=== PATIENT | female | born 1980 | race Caucasian/White ===

== ENCOUNTER 2017-11-30 20:38 | Emergency (ER) | payer OTHER ==
[2017-11-30 20:44] VITALS: O2SAT 100
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
[2017-11-30 22:43] VITALS: BP 118/71; PULSE 67; RESP 16; TEMP 98.1
--- NOTE | 2017-12-01 09:22 | RAD ---
Date of service: 11/30/2017 PROCEDURE: Left Knee Radiographs. HISTORY: Pain. COMPARISON: None. FINDINGS: BONES: Normal. No fracture. JOINTS: Normal. No osteoarthritis. JOINT EFFUSION: None. OTHER FINDINGS: None. IMPRESSION: Normal radiographs of the left knee.
--- NOTE | 2017-12-01 09:25 | RAD ---
Date of service: 11/30/2017 PROCEDURE: Radiographs of the Right Shoulder HISTORY: shoulder injury COMPARISON: No prior. FINDINGS: BONES: No acute fracture or destructive bony lesion identified. JOINTS: Glenohumeral joint is unremarkable. Questionable laxity at the acromioclavicular joint. Neutral views demonstrate no definite pattern of separation. Clinically correlate for potential AC joint disruption given 3rd view of the shoulder simulating the Y-view. SOFT TISSUES: Normal. OTHER FINDINGS: None. IMPRESSION: No acute fracture or dislocation. No definitive AC joint disruption although a single view is somewhat suspicious and consider follow-up weight-bearing right shoulder radiographs to evaluate integrity of the acromioclavicular joint.
--- NOTE | 2017-12-01 10:24 | CT ---
Date of service: 11/30/2017 PROCEDURE: CT HEAD WITHOUT CONTRAST. HISTORY: head injury COMPARISON: None available. TECHNIQUE: Axial computed tomography images were obtained through the head/brain without intravenous contrast. Radiation dose: Total exam DLP = 704.87 mGy-cm. This CT exam was performed using one or more of the following dose reduction techniques: Automated exposure control, adjustment of the mA and/or kV according to patient size, and/or use of iterative reconstruction technique. FINDINGS: HEMORRHAGE: No intracranial hemorrhage. BRAIN: Normal jaramillo-white matter differentiation and density are appreciated throughout the cerebrum and cerebellum with the brainstem appearing unremarkable as well. There is no mass effect. There is no suspicious extra-axial fluid collection and the midline brain anatomy appears diffusely unremarkable. VENTRICLES: Unremarkable. No hydrocephalus. CALVARIUM: No destructive bony lesion or displaced fracture identified including through the skullbase. PARANASAL SINUSES: Mild multi with focal ethmoid sphenoid sinusitis changes noted. MASTOID AIR CELLS: Unremarkable as visualized. No inflammatory changes. OTHER FINDINGS: None. IMPRESSION: No acute intracranial findings. No fracture identified. Mild sinusitis as discussed above. Concordant preliminary report from [facility], 11/30/2017.
--- NOTE | 2017-12-01 10:30 | CT ---
Date of service: 11/30/2017 PROCEDURE: CT Cervical Spine without contrast HISTORY: neck injury COMPARISON: None available. TECHNIQUE: Axial computed tomography images were obtained of the cervical spine without the use of intravenous contrast. Coronal and sagittal reformatted images were created and reviewed. Radiation dose: Total exam DLP = 297.44 mGy-cm. This CT exam was performed using one or more of the following dose reduction techniques: Automated exposure control, adjustment of the mA and/or kV according to patient size, and/or use of iterative reconstruction technique. FINDINGS: VERTEBRAE: Straightened curvature without spondylolisthesis, fracture or destructive bony lesion identified. Posterior elements appear intact as well as the odontoid process. C1-2 articulation appears normal as well as the craniocervical junction. DISCS/SPINAL CANAL/NEURAL FORAMINA: No significant central canal or neural foraminal stenosis. Discs heights are grossly preserved. Limited disc bulging is identified at C3-4, C4-5 and C5-6. PARASPINAL SOFT TISSUES: Unremarkable. OTHER FINDINGS: None. IMPRESSION: Straightened cervical curvature without fracture or spondylolisthesis identified. Minimal disc bulging C3-4, C4-5 and C5-6.
== END 2017-11-30 22:46 | disposition home or self-care (01) ==
LOC: H.ER 20:38
DX: S09.90XA Unspecified injury of head, initial encounter (principal); S16.1XXA Strain of muscle, fascia and tendon at neck level, initial encounter; S49.91XA Unspecified injury of right shoulder and upper arm, initial encounter; S80.02XA Contusion of left knee, initial encounter; V43.62XA Car passenger injured in collision with other type car in traffic accident, initial encounter